=== PATIENT | female | born 1985 | race Caucasian/White ===

== ENCOUNTER 2016-12-01 17:04 | Emergency (ER) | payer SELFPAY ==
[~2016-12-01] VITALS: Ht 165.1 cm; Wt 85.9 kg
[~2016-12-01 17:04] MED LIST: BENZ1CAP90 PO; PXL/40 PO
[2016-12-01 17:09] VITALS: TEMP 36.3; Ht 165.1 cm; Wt 85.9 kg
[2016-12-01] MEDS ORDERED: KETOROLAC TROMETHAMINE 60 MG/2 ML VIAL IM STA (17:25)
[2016-12-01] MEDS ORDERED: CYCLOBENZAPRINE HCL 10 MG TAB PO STA (17:25)
[2016-12-01] MEDS ORDERED: HYDROCODONE/ACETAMOPHEN 5/325MG TAB PO STA (17:25)
--- NOTE | 2016-12-01 18:27 | DIAGNOSTIC IMAGING REPORT ---
THORACIC SPINE 3 VIEWS ROUTINE HISTORY: Pain mid back pain COMPARISON: None. FINDINGS: There is no fracture. No subluxation. Disc spaces are preserved. IMPRESSION: No fracture or subluxation within the thoracic spine. The above report was generated using voice recognition software. It may contain grammatical, syntax or spelling errors. Electronically signed by: Marshal Jolly M.D. 12/01/2016 6:26 PM Dictated Date/Time: 12/01/2016 6:25 PM
[2016-12-01] MEDS ORDERED: CYCL10TA6 PO (18:47)
[2016-12-01] MEDS ORDERED: HYDR-5688 PO (18:47)
--- NOTE | 2016-12-01 18:48 | EMERGENCY ROOM VISIT NOTE ---
History First contact with patient: 17:20 Chief Complaint: BACK PAIN Stated Complaint: SEVERE BACK PAIN History of Present Illness The patient is a 31 year old female who presents to the Emergency Room with complaints of mid back pain which started yesterday and got worse today. She states it is on both sides of her back and hurts worse with movement. The patient denies any chest pain or shortness of breath. The patient denies any pain with inspiration. The patient denies any known injury to her mid back. She does admit she's had problems with her lower back in the past. The patient denies any neck pain or low back pain. The patient denies any numbness and tingling in her extremities. Review of Systems 6 system review was performed and was negative unless stated otherwise in history of present illness. Past Medical/Surgical History Medical Problems: (1) History of - tubal ligation (2) Idiopathic thrombocytopenic purpura Social History Smoking Status: Current Every Day Smoker Alcohol Use: none Marital Status: Housing Status: lives with family Current/Historical Medications Scheduled Paroxetine (Paxil), 40 MG PO DAILY Physical Exam Vital Signs Date Time Temp Pulse Resp B/P (MAP) Pulse Ox O2 Delivery O2 Flow Rate FiO2 12/01/16 17:09 36.3 75 18 109/71 94 Room Air Physical Exam GENERAL: 31-year-old white female appears uncomfortable secondary to pain. MENTAL Status: Alert and oriented 3. LUNGS: Clear auscultation without wheezes rales or rhonchi. CARDIAC: Regular rate and rhythm without murmur. Pulses is full and equal throughout. THORACIC SPINE: No gross bony deformity noted. The patient is nontender to palpation over the spinous processes. She is tender to palpation over the paravertebral regions bilaterally in the lower thoracic region. Medical Decision & Procedures ER Provider Diagnostic Interpretation: THORACIC SPINE 3 VIEWS ROUTINE HISTORY: Pain mid back pain COMPARISON: None. FINDINGS: There is no fracture. No subluxation. Disc spaces are preserved. IMPRESSION: No fracture or subluxation within the thoracic spine. The above report was generated using voice recognition software. It may contain grammatical, syntax or spelling errors. Electronically signed by: Marshal Jolly M.D. 12/01/2016 6:26 PM Dictated Date/Time: 12/01/2016 6:25 PM Medications Administered Medications (Trade) Dose Ordered Sig/Elijah Route Start Time Stop Time Status Last Admin Dose Admin Cyclobenzaprine HCl (Flexeril Tab) 10 mg NOW STAT PO 12/01/16 17:25 12/01/16 17:29 DC 12/01/16 18:00 10 MG Ketorolac Tromethamine (Toradol Inj) 60 mg NOW STAT IM 12/01/16 17:25 12/01/16 17:29 DC 12/01/16 18:01 60 MG Acetaminophen/ Hydrocodone Bitart ([place] 5/325 Tab) 2 tab NOW STAT PO 12/01/16 17:25 12/01/16 17:29 DC 12/01/16 18:00 2 TAB ED Course The patient was evaluated. The patient's EMR medication list were reviewed. The patient was given Toradol 60 mg IM, Flexeril 10 mg by mouth and [place] 5/325 mg 2 tablets by mouth for pain. X-ray of thoracic spine was ordered and interpreted by the radiologist and myself as above without any acute findings. The patient was reevaluated was feeling better. Her now did state that they have recently been moving in 2 other nephews into their home and it has been very hectic. She may have easily pulled a muscle. The patient was discharged home in stable condition.. Medical Decision Differential diagnosis include compression fracture, muscle strain, costochondritis [place] Drug Monitoring Program Search Results: patient reviewed within database Medication Reconcilliation Current Medication List: was personally reviewed by co Blood Pressure Screening Patient's blood pressure: Normal blood pressure Impression Primary Impression: Muscle strain Departure Information Dispostion Home / Self-Care Condition GOOD Prescriptions Hydrocodone/Acetaminophen 5MG/325MG ([place] 5MG/325MG) Tab 1-2 TABLET PO Q6 Y for Pain, #20 TAB For Initial Treatment Prov: Fany Jolly PA-C 12/01/16 Cyclobenzaprine Hcl (FLEXERIL) 10 Mg Tab 1 TAB PO TID for 7 Days, #21 TAB Prov: Fany Jolly PA-C 12/01/16 Referrals Travis Wynne M.D. (PCP) Forms HOME CARE DOCUMENTATION FORM, IMPORTANT VISIT INFORMATION Patient Instructions My [facility] Additional Instructions Try moist heat to the affected area intermittently over the next 24 hours. Ibuprofen 600 mg every 6 hours with food for pain. Take [place] as needed for more severe pain. Do not drive or taken the [place]. Take Flexeril as directed. Do not drive while taking the Flexeril. Avoid any strenuous exercise or lifting with her upper body. If symptoms are not improving in 3-4 days, follow- up with your family doctor.
[2016-12-01 18:53] VITALS: BP 117/75; PULSE 63; O2SAT 95
== END 2016-12-01 18:53 | disposition home or self-care (01) ==
LOC: C.EDB 17:07 → C.EDD 18:53
DX: S29.012A Strain of muscle and tendon of back wall of thorax, initial encounter (principal); Z79.899 Other long term (current) drug therapy; F17.200 Nicotine dependence, unspecified, uncomplicated; X58.XXXA Exposure to other specified factors, initial encounter

== ENCOUNTER 2017-04-19 10:17 | Emergency (ER) | payer SELFPAY ==
[~2017-04-19] VITALS: Ht 162.6 cm; Wt 88.0 kg
[~2017-04-19 10:17] MED LIST changes: -BENZ1CAP90 PO; +HYDR-5688 PO
[2017-04-19 10:26] VITALS: TEMP 36.9; Ht 162.6 cm; Wt 88.0 kg
[2017-04-19] MEDS ORDERED: KETOROLAC TROMETHAMINE 30 MG/ML VIAL IV STA (10:40)
--- NOTE | 2017-04-19 10:57 | EMERGENCY ROOM VISIT NOTE ---
History First contact with patient: 10:33 Chief Complaint: SORETHROAT Stated Complaint: SEVERE SORE THROAT,EARACHE,LEGS AND NECK SORE History of Present Illness The patient is a 31 year old female who presents to the Emergency Room with complaints of flulike symptoms for the past 2 days. The patient reports that she has had severe sore throat, bilateral earaches, head pain, bodyaches and pain in the front of her neck for the past 2 days. She reports that she has not slept due to her symptoms. She has tried multiple uosy-xlo-otdxarh medications without relief. She states that she has felt fatigued and becomes short of breath walking short distances. She has had a cough, mostly at night. She denies any recent sick contacts. She did not receive a flu vaccine this year. She does report she had one episode of vomiting last night but feels this was due to postnasal drainage. She denies abdominal pain or diarrhea. She denies neck stiffness, fevers or difficulty breathing. Review of Systems A complete 10 point review of systems was reviewed with the patient with pertinent positives and negatives as per history of present illness. All else were negative. Past Medical/Surgical History Medical Problems: (1) History of - tubal ligation (2) Idiopathic thrombocytopenic purpura Social History Smoking Status: Never Smoker Alcohol Use: none Marital Status: Housing Status: lives with family Current/Historical Medications Scheduled Paroxetine (Paxil), 40 MG PO DAILY Scheduled PRN [id number]-Qtzg (Theraflu Flu & Sore Throa), 1 PKT PO UD PRN for ILLNESS Physical Exam Vital Signs Date Time Temp Pulse Resp B/P (MAP) Pulse Ox O2 Delivery O2 Flow Rate FiO2 04/19/17 13:09 82 18 116/96 97 Room Air 04/19/17 12:20 67 18 104/64 98 Room Air 04/19/17 10:26 36.9 91 18 114/82 97 Room Air Physical Exam VITALS: Vitals are noted on the nurse's note and reviewed by myself. Vital signs stable. GENERAL: This is a 31-year-old female, in no acute distress, nondiaphoretic, well-developed well-nourished. SKIN: The skin was without rashes. EARS: External auditory canals clear, tympanic membranes pearly hutchison without erythema or effusion bilaterally. EYES: Pupils equal round and reactive to light and accommodation. MOUTH: Mucous membranes moist. Tonsils are not enlarged. Pharynx without erythema or exudate. NECK: Supple without nuchal rigidity. No lymphadenopathy. HEART: Regular rate and rhythm without murmurs gallops or rubs. LUNGS: Clear to auscultation bilaterally without wheezes, rales or rhonchi. No retractions or accessory muscle use. ABDOMEN: Soft, nontender to palpation. NEURO: Patient was alert and oriented to person place and time. Medical Decision & Procedures ER Provider Diagnostic Interpretation: SINGLE VIEW CHEST CLINICAL HISTORY: Cough. FINDINGS: An AP, portable, upright chest radiograph is compared to study dated 09/20/2016. The cardiomediastinal silhouette is unremarkable. There is mild bibasilar atelectasis. The lungs and pleural spaces are otherwise clear. No pneumothorax is seen. The bony thorax is grossly intact. IMPRESSION: No active disease in the chest. Laboratory Results 04/19/17 10:55 Red Blood Count 4.73, Mean Corpuscular Volume 92.2, Mean Corpuscular Hemoglobin 32.6, Mean Corpuscular Hemoglobin Concent 35.3, Mean Platelet Volume 10.7, Neutrophils (%) (Auto) 70.6, Lymphocytes (%) (Auto) 18.5, Monocytes (%) (Auto) 9.2, Eosinophils (%) (Auto) 1.3, Basophils (%) (Auto) 0.2, Neutrophils # (Auto) 8.67, Lymphocytes # (Auto) 2.27, Monocytes # (Auto) 1.13, Eosinophils # (Auto) 0.16, Basophils # (Auto) 0.03 04/19/17 10:55 Test 04/19/17 10:55 04/19/17 11:03 White Blood Count 12.28 K/uL (4.8-10.8) Red Blood Count 4.73 M/uL (4.2-5.4) Hemoglobin 15.4 g/dL (12.0-16.0) Hematocrit 43.6 % (37-47) Mean Corpuscular Volume 92.2 fL (80-100) Mean Corpuscular Hemoglobin 32.6 pg (25-34) Mean Corpuscular Hemoglobin Concent 35.3 g/dl (32-36) Platelet Count 141 K/uL (130-400) Mean Platelet Volume 10.7 fL (7.4-10.4) Neutrophils (%) (Auto) 70.6 % Lymphocytes (%) (Auto) 18.5 % Monocytes (%) (Auto) 9.2 % Eosinophils (%) (Auto) 1.3 % Basophils (%) (Auto) 0.2 % Neutrophils # (Auto) 8.67 K/uL (1.4-6.5) Lymphocytes # (Auto) 2.27 K/uL (1.2-3.4) Monocytes # (Auto) 1.13 K/uL (0.11-0.59) Eosinophils # (Auto) 0.16 K/uL (0-0.5) Basophils # (Auto) 0.03 K/uL (0-0.2) RDW Standard Deviation 46.0 fL (36.4-46.3) RDW Coefficient of Variation 13.6 % (11.5-14.5) Immature Granulocyte % (Auto) 0.2 % Immature Granulocyte # (Auto) 0.02 K/uL (0.00-0.02) Anion Gap 6.0 mmol/L (3-11) Est Creatinine Clear Calc Drug Dose 124.6 ml/min Estimated GFR () 132.6 Estimated GFR (Non- 114.4 BUN/Creatinine Ratio 12.2 (10-20) Calcium Level 8.8 mg/dl (8.5-10.1) Influenza Type A Antigen Neg for Influ A (NEG) Influenza Type B Antigen Neg for Influ B (NEG) Medications Administered Medications (Trade) Dose Ordered Sig/Elijah Route Start Time Stop Time Status Last Admin Dose Admin Ketorolac Tromethamine (Toradol Inj) 30 mg NOW STAT IV 04/19/17 10:40 04/19/17 10:43 DC 04/19/17 10:52 30 MG Medical Decision Differential diagnosis includes influenza, strep pharyngitis, viral illness, pneumonia, among others. The patient is a 31-year-old female who presents today complaining of flulike symptoms. Labs revealed and mild leukocytosis. Rapid influenza and strep testing were negative. Strep culture is pending. Patient was treated with IV Toradol with some relief. Her symptoms are likely due to a viral illness. She was instructed to follow-up with her primary care provider. Conservative measures were discussed. Based on the patient's presentation and work up, I feel the patient is stable for outpatient treatment. The patient was educated to return to the emergency department for any worsening of their current condition or new/concerning symptoms. She will follow up with her PCP. Medication Reconcilliation Current Medication List: was personally reviewed by me Blood Pressure Screening Patient's blood pressure: Normal blood pressure Impression Primary Impression: Flu-like symptoms Departure Information Dispostion Home / Self-Care Condition GOOD Referrals Travis Wynne M.D. (PCP) Patient Instructions My [facility] Additional Instructions For pain control, you can use the following kuje-jfd-jboxpej medicines (if >12 yo): - Regular strength (325mg/tab) Tylenol (acetaminophen) 2 tabs every 4-6 hours as needed. Do not exceed 12 tablets in a 24 hour period. Avoid taking more than 4 grams (4000 mg) of Tylenol per day. This includes any other sources of acetaminophen you may take on a regular basis. - Regular strength (200 mg/tab) Advil (ibuprofen) 1-2 tabs every 4-6 hours as needed. Do not exceed a dose of 3200 mg per day. Sudafed [id number]-khk-htizlwa as needed for congestion and other symptoms. Flonase nasal spray as directed over the counter. This will help with your nasal congestion. Rest and drink plenty of fluids. Follow-up with your primary care provider for a recheck. Return to the emergency department for any worsening or new/concerning symptoms.
--- NOTE | 2017-04-19 10:58 | DIAGNOSTIC IMAGING REPORT ---
SINGLE VIEW CHEST CLINICAL HISTORY: Cough. FINDINGS: An AP, portable, upright chest radiograph is compared to study dated 09/20/2016. The cardiomediastinal silhouette is unremarkable. There is mild bibasilar atelectasis. The lungs and pleural spaces are otherwise clear. No pneumothorax is seen. The bony thorax is grossly intact. IMPRESSION: No active disease in the chest. Electronically signed by: Scott Jacob M.D. 04/19/2017 10:57 AM Dictated Date/Time: 04/19/2017 10:56 AM
[2017-04-19] MEDS ORDERED: THERA FLU PO (11:01)
[2017-04-19] MEDS ORDERED: [UNRECOGNIZED DRUG - CODE] PO (11:02)
[2017-04-19 11:04] LABS: BASO % 0.2 %; BASO ABS # 0.03 K/uL (0-0.2); EOS % 1.3 %; EOS ABS # 0.16 K/uL (0-0.5); HEMATOCRIT 43.6 % (37-47); HEMOGLOBIN 15.4 g/dL (12.0-16.0); IG# 0.02 K/uL (0.00-0.02); LYMPH % 18.5 %; LYMPH ABS # 2.27 K/uL (1.2-3.4); MEAN CELL VOLUME 92.2 fL (80-100); MEAN CORPUSCULAR HEMOGLOBIN 32.6 pg (25-34); MEAN CORPUSCULAR HGB CONC 35.3 g/dl (32-36); MEAN PLATELET VOLUME 10.7 fL (7.4-10.4); MONO % 9.2 %; MONO ABS # 1.13 K/uL (0.11-0.59); NEUT % 70.6 %; NEUT ABS # 8.67 K/uL (1.4-6.5); PLATELET COUNT 141 K/uL (130-400); RED CELL DISTRIBUTION WIDTH CV 13.6 % (11.5-14.5); WHITE BLOOD COUNT 12.28 K/uL (4.8-10.8)
[2017-04-19 11:21] LABS: CALCIUM 8.8 mg/dl (8.5-10.1); CREATININE 0.69 mg/dl (0.60-1.20); POTASSIUM 3.9 mmol/L (3.5-5.1)
[2017-04-19 11:40] LABS: INFLUENZA B ANTIGEN Neg for Influ B (NEG)
[2017-04-19 13:09] VITALS: BP 116/96; PULSE 82; O2SAT 97
== END 2017-04-19 13:32 | disposition home or self-care (01) ==
LOC: C.EDB 10:18 → C.EDC 13:32
DX: J02.9 Acute pharyngitis, unspecified (principal); R05 Cough; R11.10 Vomiting, unspecified; D69.3 Immune thrombocytopenic purpura; Z98.51 Tubal ligation status

== ENCOUNTER 2017-12-01 13:25 | Emergency (ER) | payer SELFPAY ==
[~2017-12-01] VITALS: Ht 162.6 cm; Wt 87.4 kg
[~2017-12-01 13:25] MED LIST changes: -HYDR-5688 PO; +[UNRECOGNIZED DRUG - CODE] PO
[2017-12-01 13:29] VITALS: TEMP 36.5; Ht 162.6 cm; Wt 87.4 kg
[2017-12-01] MEDS ORDERED: MECLIZINE HCL 25 MG TAB PO STA (13:41)
[2017-12-01] MEDS ORDERED: SODIUM CHLORIDE 0.9% 1000ML 1,000 ML IV STA (13:41)
[2017-12-01] MEDS ORDERED: ONDANSETRON 4MG OD TAB PO ONE (13:45)
[2017-12-01 13:57] VITALS: O2SAT 100
[2017-12-01 14:17] LABS: BASO % 0.2 %; BASO ABS # 0.02 K/uL (0-0.2); EOS % 1.9 %; EOS ABS # 0.17 K/uL (0-0.5); HEMATOCRIT 45.2 % (37-47); HEMOGLOBIN 15.8 g/dL (12.0-16.0); IG# 0.01 K/uL (0.00-0.02); LYMPH % 30.2 %; LYMPH ABS # 2.66 K/uL (1.2-3.4); MEAN CELL VOLUME 91.9 fL (80-100); MEAN CORPUSCULAR HEMOGLOBIN 32.1 pg (25-34); MEAN PLATELET VOLUME 10.6 fL (7.4-10.4); MONO % 4.7 %; MONO ABS # 0.41 K/uL (0.11-0.59); NEUT % 62.9 %; NEUT ABS # 5.53 K/uL (1.4-6.5); PLATELET COUNT 178 K/uL (130-400); RED CELL DISTRIBUTION WIDTH CV 13.7 % (11.5-14.5); RED CELL DISTRIBUTION WIDTH SD 46.1 fL (36.4-46.3)
--- NOTE | 2017-12-01 14:24 | DIAGNOSTIC IMAGING REPORT ---
CHEST ONE VIEW PORTABLE CLINICAL HISTORY: EVALUATE WEAKNESS mental status change COMPARISON STUDY: 04/19/2017 FINDINGS: The bones soft tissues and hemidiaphragms are normal. The cardiomediastinal silhouette is normal. The lungs are clear. The pulmonary vasculature is normal. IMPRESSION: Negative chest. The above report was generated using voice recognition software. It may contain grammatical, syntax or spelling errors. Electronically signed by: Marshal Jolly M.D. 12/01/2017 2:22 PM Dictated Date/Time: 12/01/2017 2:22 PM
[2017-12-01 14:40] LABS: ALKALINE PHOSPHATASE 73 U/L (45-117); ALT/SGPT 23 U/L (12-78); AST/SGOT 16 U/L (15-37); BLOOD UREA NITROGEN 9 mg/dl (7-18); CALCIUM 8.9 mg/dl (8.5-10.1); CARBON DIOXIDE 24 mmol/L (21-32); CREATININE 0.78 mg/dl (0.60-1.20); GLUCOSE 82 mg/dl (70-99); POTASSIUM 3.9 mmol/L (3.5-5.1); SODIUM 134 mmol/L (136-145)
--- NOTE | 2017-12-01 14:48 | DIAGNOSTIC IMAGING REPORT ---
CT SCAN OF THE BRAIN WITHOUT IV CONTRAST CLINICAL HISTORY: Generalized weakness. Dizziness. Blurred vision. COMPARISON STUDY: No priors. TECHNIQUE: Unenhanced axial CT scan of the brain is performed from the vertex to the skull base. A dose lowering technique was utilized adhering to the principles of ALARA. CT DOSE: 537.48 mGy.cm FINDINGS: Brain parenchyma: The brain parenchyma is normal in appearance. There is no hemorrhage, mass effect, or evidence of acute territorial ischemia by CT criteria. Ruby-white matter is preserved. No extra-axial fluid collection is seen. Ventricles, sulci, cisterns: Normal in configuration. Intracranial vasculature: The visualized intracranial vasculature at the skull base is normal in appearance. Calvarium: Unremarkable. Sinuses and mastoids: Trace mucosal thickening is seen within the left frontal sinus and the anterior ethmoid sinuses. The remaining visualized paranasal sinuses are clear. The mastoid air cells are well pneumatized. Orbits: The bony orbits are grossly intact. IMPRESSION: No acute intracranial abnormality. Electronically signed by: Scott Jacob M.D. 12/01/2017 2:46 PM Dictated Date/Time: 12/01/2017 2:45 PM
[2017-12-01 15:22] VITALS: BP 129/72; PULSE 51; O2SAT 98
--- NOTE | 2017-12-01 17:23 | EMERGENCY ROOM VISIT NOTE ---
History Report prepared by Aaron: Gay Contreras Under the Supervision of: Dr. Nicolás Morrison D.O. 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 She states she was driving when she developed some horizontal double vision and dizziness. When she closed one eye, she still saw 2 objects in both eyes [id number]. Currently, she has blurry vision but her double vision is resolved. Pt has some associated mild right sided head pressure but denies any weakness, abdominal pain, cough, SOB. She states her mouth and bilateral hands were numb and tingling. 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 Patient has no other clotting disorders. 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 A total of 10 systems reviewed and were otherwise negative. Past Medical & Surgical Medical Problems: (1) History of - tubal ligation (2) Idiopathic thrombocytopenic purpura Family History Cancer FH: diabetes mellitus FH: lung disease FH: seizures Heart disease Social History Smoking Status: Current Every Day Smoker Alcohol Use: none Marital Status: Housing Status: lives with family Current/Historical Medications Scheduled Paroxetine (Paxil), 40 MG PO DAILY Scheduled PRN Csucxfzjgyp-Caaimqwusnsim-Nqqw (Theraflu Flu & Sore Throa), 1 PKT PO UD PRN for ILLNESS Allergies Coded Allergies: No Known Allergies (Verified , 04/19/17) Physical Exam Vital Signs Date Time Temp Pulse Resp B/P (MAP) Pulse Ox O2 Delivery O2 Flow Rate FiO2 12/01/17 15:22 51 16 129/72 98 12/01/17 13:58 57 12/01/17 13:57 100 Room Air 12/01/17 13:57 100 12/01/17 13:55 58 137/86 72 127/93 73 123/83 8/15/18 13:29 36.5 71 18 132/92 98 Room Air Physical Exam GENERAL: Sitting up in bed, alert, anxious appearing, well nourished, no distress, non-toxic EYE EXAM: normal conjunctiva. PERRLA, extraocular muscles intact OROPHARYNX: no exudate, no erythema, lips, buccal mucosa, and tongue normal and mucous membranes are moist NECK: supple, no nuchal rigidity, no adenopathy, non-tender LUNGS: Clear to auscultation. Normal chest wall mechanics HEART: no murmurs, S1 normal and S2 normal ABDOMEN: abdomen soft, non-tender, normo-active bowel sounds, no masses, no rebound or guarding. BACK: Back is symmetrical on inspection and there is no deformity, no midline tenderness, no CVA tenderness. SKIN: no rashes and no bruising UPPER EXTREMITIES: upper extremities are grossly normal. LOWER EXTREMITIES: No pitting edema. NEURO EXAM: Normal sensorium, cranial nerves II-XII intact, normal speech, no weakness of arms, no weakness of legs. No drift. Finger to nose intact. Gross sensation intact. Rapid alternating movement of upper extremities intact. Medical Decision & Procedures ER Provider Diagnostic Interpretation: Radiology results as stated below per my review and the radiologist's interpretation: CT SCAN OF THE BRAIN WITHOUT IV CONTRAST CLINICAL HISTORY: Generalized weakness. Dizziness. Blurred vision. COMPARISON STUDY: No priors. TECHNIQUE: Unenhanced axial CT scan of the brain is performed from the vertex to the skull base. A dose lowering technique was utilized adhering to the principles of ALARA. CT DOSE: 537.48 mGy.cm FINDINGS: Brain parenchyma: The brain parenchyma is normal in appearance. There is no hemorrhage, mass effect, or evidence of acute territorial ischemia by CT criteria. Ruby-white matter is preserved. No extra-axial fluid collection is seen. Ventricles, sulci, cisterns: Normal in configuration. Intracranial vasculature: The visualized intracranial vasculature at the skull base is normal in appearance. Calvarium: Unremarkable. Sinuses and mastoids: Trace mucosal thickening is seen within the left frontal sinus and the anterior ethmoid sinuses. The remaining visualized paranasal sinuses are clear. The mastoid air cells are well pneumatized. Orbits: The bony orbits are grossly intact. IMPRESSION: No acute intracranial abnormality. Electronically signed by: Scott Jacob M.D. 12/01/2017 2:46 PM CHEST ONE VIEW PORTABLE CLINICAL HISTORY: EVALUATE WEAKNESS mental status change COMPARISON STUDY: 04/19/2017 FINDINGS: The bones soft tissues and hemidiaphragms are normal. The cardiomediastinal silhouette is normal. The lungs are clear. The pulmonary vasculature is normal. IMPRESSION: Negative chest. The above report was generated using voice recognition software. It may contain grammatical, syntax or spelling errors. Electronically signed by: Marshal Jolly M.D. 12/01/2017 2:22 PM Laboratory Results 12/01/17 14:06 Red Blood Count 4.92, Mean Corpuscular Volume 91.9, Mean Corpuscular Hemoglobin 32.1, Mean Corpuscular Hemoglobin Concent 35.0, Mean Platelet Volume 10.6, Neutrophils (%) (Auto) 62.9, Lymphocytes (%) (Auto) 30.2, Monocytes (%) (Auto) 4.7, Eosinophils (%) (Auto) 1.9, Basophils (%) (Auto) 0.2, Neutrophils # (Auto) 5.53, Lymphocytes # (Auto) 2.66, Monocytes # (Auto) 0.41, Eosinophils # (Auto) 0.17, Basophils # (Auto) 0.02 12/01/17 14:06 Test 12/01/17 14:06 12/01/17 14:14 White Blood Count 8.80 K/uL (4.8-10.8) Red Blood Count 4.92 M/uL (4.2-5.4) Hemoglobin 15.8 g/dL (12.0-16.0) Hematocrit 45.2 % (37-47) Mean Corpuscular Volume 91.9 fL (80-100) Mean Corpuscular Hemoglobin 32.1 pg (25-34) Mean Corpuscular Hemoglobin Concent 35.0 g/dl (32-36) Platelet Count 178 K/uL (130-400) Mean Platelet Volume 10.6 fL (7.4-10.4) Neutrophils (%) (Auto) 62.9 % Lymphocytes (%) (Auto) 30.2 % Monocytes (%) (Auto) 4.7 % Eosinophils (%) (Auto) 1.9 % Basophils (%) (Auto) 0.2 % Neutrophils # (Auto) 5.53 K/uL (1.4-6.5) Lymphocytes # (Auto) 2.66 K/uL (1.2-3.4) Monocytes # (Auto) 0.41 K/uL (0.11-0.59) Eosinophils # (Auto) 0.17 K/uL (0-0.5) Basophils # (Auto) 0.02 K/uL (0-0.2) RDW Standard Deviation 46.1 fL (36.4-46.3) RDW Coefficient of Variation 13.7 % (11.5-14.5) Immature Granulocyte % (Auto) 0.1 % Immature Granulocyte # (Auto) 0.01 K/uL (0.00-0.02) Anion Gap 8.0 mmol/L (3-11) Est Creatinine Clear Calc Drug Dose 108.8 ml/min Estimated GFR () 115.0 Estimated GFR (Non- 99.2 BUN/Creatinine Ratio 11.2 (10-20) Calcium Level 8.9 mg/dl (8.5-10.1) Total Bilirubin 0.4 mg/dl (0.2-1) Direct Bilirubin < 0.1 mg/dl (0-0.2) Aspartate Amino Transf (AST/SGOT) 16 U/L (15-37) Alanine Aminotransferase (ALT/SGPT) 23 U/L (12-78) Alkaline Phosphatase 73 U/L (45-117) Troponin I < 0.015 ng/ml (0-0.045) Total Protein 8.0 gm/dl (6.4-8.2) Albumin 4.0 gm/dl (3.4-5.0) Urine Color YELLOW Urine Appearance CLOUDY (CLEAR) Urine pH 6.5 (4.5-7.5) Urine Specific [place] 1.005 (1.000-1.030) Urine Protein NEG (NEG) Urine Glucose (UA) NEG (NEG) Urine Ketones NEG (NEG) Urine Occult Blood NEG (NEG) Urine Nitrite NEG (NEG) Urine Bilirubin NEG (NEG) Urine Urobilinogen NEG (NEG) Urine Leukocyte Esterase NEG (NEG) Urine WBC (Auto) 1-5 /hpf (0-5) Urine RBC (Auto) 0-4 /hpf (0-4) Urine Hyaline Casts (Auto) 5-10 /lpf (0-5) Urine Epithelial Cells (Auto) >30 /lpf (0-5) Urine Bacteria (Auto) 1+ (NEG) Laboratory results per my review. Medications Administered Medications (Trade) Dose Ordered Sig/Elijah Route Start Time Stop Time Status Last Admin Dose Admin Ondansetron HCl (Zofran Odt) 4 mg ONE ONCE PO 12/01/17 13:45 12/01/17 13:46 DC 12/01/17 14:14 4 MG Sodium Chloride 1,000 ml @ 999 mls/hr Q1H1M STAT IV 12/01/17 13:41 12/01/17 14:41 DC 12/01/17 13:41 999 MLS/HR Meclizine HCl (Antivert Tab) 25 mg NOW STAT PO 12/01/17 13:41 12/01/17 13:42 DC 12/01/17 14:14 25 MG ECG Per My Interpretation Indication: other (dizziness) Rate (beats per minute): 60 Rhythm: sinus rhythm Findings: other (normal axis, no PVCs) ED Course ED COURSE: Vital signs were reviewed and showed normal The patients medical record was reviewed The above diagnostic studies were performed and reviewed. ED treatments and interventions as stated above. 1334: The patient was evaluated in room C1. A complete history and physical examination was performed. 1341: Ordered Antivert Tab 25 mg PO, Sodium Chloride 1000 ml @ 999 mls/hr IV 1345: Ordered Zofran Odt 4 mg PO 1414: I checked on the patient at this time. She is resting comfortably. 1500: I reviewed the patient's case with Dr. Jesus Orantes, Neurology [facility]. He agree she can be seen as an outpatient and have her follow up 1505: Upon reevaluation, the patient is feeling better. I discussed my findings with the patient and she understands and agrees with the treatment plan. Based on the patients age, coexisting illnesses, exam and lab findings the decision to treat as an outpatient was made. The patient remained stable while under my care. The patient appeared well at the time of discharge. Medical Decision Differential diagnosis includes etiologies such as benign positional vertigo, dehydration, hypovolemia, anemia, tumor, infection, hypoglycemia, electrolyte abnormalities, cardiac sources, intracerebral event, toxicologic, neurologic, as well as others were entertained. Patient is a 32-year-old female presents to ER for double vision. This started 45 minutes prior to arrival and was in both eyes. Patient was seen 2 images in each eye [id number]. She notes that she had double vision in each eye when she closed the opposite eye. Patient pulled over the side of road. Prior to presentation this resolved. She notes that she started to get blurry vision prior to arrival to the ER. She is neurologically intact here. CT head was negative. Symptoms completely resolved. Labs are fairly unremarkable. Discussed with neurology both agree this is likely not central or peripheral in nature. I favor that she was likely describing blurry vision in both eyes. Nothing to suggest a CVA. Patient was discharged follow-up with PCP as an outpatient. Discussed with Pt concerning signs and symptoms to watch out for. Pt was instructed to follow up with their PCP and discussed with the patient their option to return to the ED at anytime for persistent or worsening symptoms. The appropriate anticipatory guidance and out-patient management, including indications for return to the emergency department, were explained at length to the patient and understood. Medication Reconcilliation Current Medication List: was personally reviewed by me Blood Pressure Screening Patient's blood pressure: Normal blood pressure Consults Time Called: 1450 Consulting Physician: Dr. Jesus Orantes, Neurology [facility] Returned Call: 1500 I reviewed the patient's case with Dr. Jesus Orantes, Neurology [facility]. He agree she can be seen as an outpatient and have her follow up Impression Primary Impression: Blurry vision Additional Impression: Dizziness Scribe Attestation The scribe's documentation has been prepared under my direction and personally reviewed by me in its entirety. I confirm that the note above accurately reflects all work, treatment, procedures, and medical decision making performed by me. Departure Information Dispostion Home / Self-Care Referrals Travis Wynne M.D. (PCP) Forms HOME CARE DOCUMENTATION FORM, IMPORTANT VISIT INFORMATION, WORK / SCHOOL INSTRUCTIONS Patient Instructions My [facility] [place] [employer] Additional Instructions Please follow up with your primary care doctor with in the next 24 hours. Any worsening of your symptoms, please return to the ED immediately. This includes any fevers greater than 100.4, worsening pain, chest pain, shortness breath, persistent nausea, vomiting, unable to eat or drink, or any other concerning signs or symptoms from your standpoint. Please take Tylenol or Motrin as needed for the headache. Please refrain from driving for the next 24 hours and at least until her symptoms completely resolved. Any recurrence of weakness or numbness in her arms legs, change in vision or confusion please return immediately to the ER. Problem Qualifiers
== END 2017-12-01 15:23 | disposition home or self-care (01) ==
LOC: C.EDB 13:29 → C.EDC 15:23
DX: H53.8 Other visual disturbances (principal); R42 Dizziness and giddiness; F17.200 Nicotine dependence, unspecified, uncomplicated; Z86.2 Personal history of diseases of the blood and blood-forming organs and certain disorders involving the immune mechanism

== ENCOUNTER 2017-12-08 20:48 | Emergency (ER) | payer SELFPAY ==
[~2017-12-08] VITALS: Ht 162.6 cm; Wt 87.8 kg
[2017-12-08 20:50] VITALS: TEMP 36.9; Ht 162.6 cm; Wt 87.8 kg
[2017-12-08] MEDS ORDERED: KETOROLAC TROMETHAMINE 30 MG/ML VIAL IV STA (22:06)
[2017-12-08] MEDS ORDERED: DiphenhydrAMINE HCL 50 MG/ML VIAL IV STA (22:06)
[2017-12-08] MEDS ORDERED: PROCHLORPERAZINE 5 MG/ML 2 ML VIAL IV STA (22:06)
[2017-12-08] MEDS ORDERED: RIZATRIPTAN BENZOATE 10 MG TAB PO ONE (22:15)
[2017-12-08] MEDS ORDERED: SODIUM CHLORIDE 0.9% 1000ML 1,000 ML IV ONE ×2 (22:15)
[2017-12-08 22:39] LABS: BASO % 0.2 %; BASO ABS # 0.02 K/uL (0-0.2); EOS % 3.1 %; EOS ABS # 0.25 K/uL (0-0.5); HEMATOCRIT 42.4 % (37-47); HEMOGLOBIN 14.9 g/dL (12.0-16.0); IG# 0.02 K/uL (0.00-0.02); LYMPH % 43.5 %; LYMPH ABS # 3.53 K/uL (1.2-3.4); MEAN CORPUSCULAR HEMOGLOBIN 32.3 pg (25-34); MEAN CORPUSCULAR HGB CONC 35.1 g/dl (32-36); MEAN PLATELET VOLUME 10.9 fL (7.4-10.4); MONO % 8.4 %; MONO ABS # 0.68 K/uL (0.11-0.59); NEUT % 44.6 %; NEUT ABS # 3.62 K/uL (1.4-6.5); PLATELET COUNT 159 K/uL (130-400); RED CELL DISTRIBUTION WIDTH CV 13.9 % (11.5-14.5); RED CELL DISTRIBUTION WIDTH SD 46.5 fL (36.4-46.3); WHITE BLOOD COUNT 8.12 K/uL (4.8-10.8)
[2017-12-08 23:06] LABS: ALBUMIN 3.4 gm/dl (3.4-5.0); CALCIUM 8.5 mg/dl (8.5-10.1); CREATININE 0.71 mg/dl (0.60-1.20); POTASSIUM 4.1 mmol/L (3.5-5.1); TOTAL PROTEIN 6.8 gm/dl (6.4-8.2)
[2017-12-09] MEDS ORDERED: RIZA10TA18 PO (00:22)
[2017-12-09 00:29] VITALS: BP 127/78; PULSE 88; O2SAT 98
--- NOTE | 2017-12-09 03:56 | EMERGENCY ROOM VISIT NOTE ---
History First contact with patient: 21:47 Chief Complaint: HEADACHE Stated Complaint: INTENSE INSTANT HEADACHE History of Present Illness The patient is a 32 year old female who presents to the Emergency Room with complaints of headache symptoms off and on for the past 1-2 weeks. Patient was seen a week ago at this facility with identical complaints. At that time she had blood work, IV medication, and a CT scan of her head. The patient felt well after that visit, however she had a return of the headache 2 days later, and then again today. The patient states that she saw visual "squiggles" just before the headache began. The patient does not have neck pain, chest pain, chest tightness, shortness of breath, numbness, or paresthesias. No injury or trauma. This headache is similar to her headache last week. Evidently she tried to follow-up with her primary care physician (Dr Wynne), and was informed that he had retired. The patient does not have an appointment to reestablish at this time, but is confident that she will be able to make this occur. The patient is nauseated and denies chance of . No fever. She has been taking ibuprofen today with only minimal improvement of symptoms. The pain is a sharp 10/10. It does not radiate. Review of Systems More than 10 systems were reviewed and otherwise negative with the exception of history of present illness. Past Medical/Surgical History Medical Problems: (1) History of - tubal ligation (2) Idiopathic thrombocytopenic purpura Family History Cancer FH: diabetes mellitus FH: lung disease FH: seizures Heart disease Social History Smoking Status: Current Every Day Smoker Alcohol Use: none Marital Status: Housing Status: lives with family Current/Historical Medications Scheduled Paroxetine (Paxil), 40 MG PO DAILY Rizatriptan Benzoate (Maxalt), 10 MG PO DIRECTED Scheduled PRN Cusruwulylw-Qqkpucmwwhsmh-Fovn (Theraflu Flu & Sore Throa), 1 PKT PO UD PRN for ILLNESS Physical Exam Vital Signs Date Time Temp Pulse Resp B/P (MAP) Pulse Ox O2 Delivery O2 Flow Rate FiO2 12/09/17 00:29 88 20 127/78 98 12/08/17 23:46 82 20 122/72 97 Room Air 12/08/17 21:50 64 18 123/80 94 Room Air 12/08/17 20:50 36.9 66 18 124/88 95 Room Air Physical Exam VITALS: Vitals are noted on the nurse's note and reviewed by myself. Vital signs stable. GENERAL: Well-developed, well-nourished, white female who is resting in a darkened emergency department room. She is answering questions appropriately HEAD: Normocephalic atraumatic. EARS: External ear normal. External auditory canals clear, tympanic membranes pearly [place] without erythema or effusion bilaterally. EYES: Pupils equal round and reactive to light and accommodation. Conjunctivae without injection, sclerae without icterus. Extraocular movements intact. NOSE: Patent, turbinates without inflammation or discharge. MOUTH: Mucous membranes moist. Tonsils are not enlarged. Pharynx without erythema, blood, or exudate. Uvula midline. Airway patent. NECK: Supple without nuchal rigidity. No lymphadenopathy. No thyromegaly. Cervical spine is nontender. No meningismus HEART: Regular rate and rhythm without murmurs gallops or rubs. LUNGS: Clear to auscultation bilaterally without wheezes, rales or rhonchi. No retractions or accessory muscle use. MUSCULOSKELETAL: No muscle atrophy, erythema, or edema noted. Full range of motion in all extremities. No tenderness to palpation. Normal gait. Strength 5/5 throughout. NEURO: Patient was alert and oriented to person place and time. CN II through XII grossly intact. No focal neurological deficits. Medical Decision & Procedures Laboratory Results 12/08/17 22:25 Red Blood Count 4.61, Mean Corpuscular Volume 92.0, Mean Corpuscular Hemoglobin 32.3, Mean Corpuscular Hemoglobin Concent 35.1, Mean Platelet Volume 10.9, Neutrophils (%) (Auto) 44.6, Lymphocytes (%) (Auto) 43.5, Monocytes (%) (Auto) 8.4, Eosinophils (%) (Auto) 3.1, Basophils (%) (Auto) 0.2, Neutrophils # (Auto) 3.62, Lymphocytes # (Auto) 3.53, Monocytes # (Auto) 0.68, Eosinophils # (Auto) 0.25, Basophils # (Auto) 0.02 12/08/17 22:25 Test 12/08/17 22:25 12/08/17 23:46 White Blood Count 8.12 K/uL (4.8-10.8) Red Blood Count 4.61 M/uL (4.2-5.4) Hemoglobin 14.9 g/dL (12.0-16.0) Hematocrit 42.4 % (37-47) Mean Corpuscular Volume 92.0 fL (80-100) Mean Corpuscular Hemoglobin 32.3 pg (25-34) Mean Corpuscular Hemoglobin Concent 35.1 g/dl (32-36) Platelet Count 159 K/uL (130-400) Mean Platelet Volume 10.9 fL (7.4-10.4) Neutrophils (%) (Auto) 44.6 % Lymphocytes (%) (Auto) 43.5 % Monocytes (%) (Auto) 8.4 % Eosinophils (%) (Auto) 3.1 % Basophils (%) (Auto) 0.2 % Neutrophils # (Auto) 3.62 K/uL (1.4-6.5) Lymphocytes # (Auto) 3.53 K/uL (1.2-3.4) Monocytes # (Auto) 0.68 K/uL (0.11-0.59) Eosinophils # (Auto) 0.25 K/uL (0-0.5) Basophils # (Auto) 0.02 K/uL (0-0.2) RDW Standard Deviation 46.5 fL (36.4-46.3) RDW Coefficient of Variation 13.9 % (11.5-14.5) Immature Granulocyte % (Auto) 0.2 % Immature Granulocyte # (Auto) 0.02 K/uL (0.00-0.02) Anion Gap 8.0 mmol/L (3-11) Est Creatinine Clear Calc Drug Dose 119.8 ml/min Estimated GFR () 128.8 Estimated GFR (Non- 111.1 BUN/Creatinine Ratio 16.6 (10-20) Calcium Level 8.5 mg/dl (8.5-10.1) Magnesium Level 1.9 mg/dl (1.8-2.4) Total Bilirubin 0.2 mg/dl (0.2-1) Aspartate Amino Transf (AST/SGOT) 15 U/L (15-37) Alanine Aminotransferase (ALT/SGPT) 22 U/L (12-78) Alkaline Phosphatase 59 U/L (45-117) Total Protein 6.8 gm/dl (6.4-8.2) Albumin 3.4 gm/dl (3.4-5.0) Globulin 3.4 gm/dl (2.5-4.0) Albumin/Globulin Ratio 1.0 (0.9-2) Thyroid Stimulating Hormone (TSH) 2.870 uIu/ml (0.300-4.500) Lyme Disease IgG Antibody NEG (NEG) Lyme Disease IgM Antibody NEG (NEG) Urine Color YELLOW Urine Appearance CLOUDY (CLEAR) Urine pH 6.0 (4.5-7.5) Urine Specific [place] 1.019 (1.000-1.030) Urine Protein NEG (NEG) Urine Glucose (UA) NEG (NEG) Urine Ketones NEG (NEG) Urine Occult Blood NEG (NEG) Urine Nitrite NEG (NEG) Urine Bilirubin NEG (NEG) Urine Urobilinogen NEG (NEG) Urine Leukocyte Esterase NEG (NEG) Urine WBC (Auto) 1-5 /hpf (0-5) Urine RBC (Auto) 0-4 /hpf (0-4) Urine Hyaline Casts (Auto) 1-5 /lpf (0-5) Urine Epithelial Cells (Auto) >30 /lpf (0-5) Urine Bacteria (Auto) 1+ (NEG) Urine Test NEG (NEG) Medications Administered Medications (Trade) Dose Ordered Sig/Elijah Route Start Time Stop Time Status Last Admin Dose Admin Sodium Chloride 1,000 ml @ 999 mls/hr Q1H1M ONCE IV 12/08/17 22:15 12/08/17 23:15 DC 12/08/17 22:34 999 MLS/HR Sodium Chloride 1,000 ml @ 999 mls/hr Q1H1M ONCE IV 12/08/17 22:15 12/08/17 23:15 DC 12/08/17 22:15 999 MLS/HR Diphenhydramine HCl (Benadryl Inj) 25 mg NOW STAT IV 12/08/17 22:06 12/08/17 22:09 DC 12/08/17 22:31 25 MG Prochlorperazine Edisylate (Compazine Inj) 10 mg NOW STAT IV 12/08/17 22:06 12/08/17 22:09 DC 12/08/17 22:31 10 MG Ketorolac Tromethamine (Toradol Inj) 30 mg NOW STAT IV 12/08/17 22:06 12/08/17 22:09 DC 12/08/17 22:32 30 MG Rizatriptan Benzoate (Maxalt Tab) 10 mg NOW ONCE PO 12/08/17 22:15 12/08/17 22:16 DC 12/08/17 22:33 10 MG ED Course Physical exam and history were performed. Nursing notes, EMR, and Medication List were personally reviewed. Patient appears to have headache symptoms off and on for the past several days. She is describing what sounds like a visual aura before her headaches occur, and I strongly suspect migrainous headaches. The patient does have a recent CT scan of the head at this facility that did not show acute findings. Utilizing shared decision making we elected against repeat imaging. IV access was established and labs were obtained. The patient was hydrated with normal saline. She was given IV Benadryl, IV Compazine, IV Toradol, and oral Maxalt. The patient was reevaluated multiple times throughout the course of her stay. Her blood work is as above and was reviewed. She does not have a significantly elevated white blood cell count, gross anemia, bandemia, or significant electrolyte imbalance. Urine is without evidence of infection or . Overall the patient had significant improvement of her symptoms with the above interventions. She was able to rest quite comfortably and reported almost complete resolution of her pain. I discussed options of care with the patient who is comfortable with discharge home. She is having difficulty reestablishing with a PCP and I will give her a prescription of Maxalt. The patient was given instructions as below and otherwise invited back to the ER with any new, worsening, or concerning symptoms. She was discharged home under the care of a female supervisor contact and service clerks who is acting as the public transit bus driver. The chart was completed utilizing [employer] Speech Voice Recognition Software. Grammatical errors, random word insertions, pronoun errors, and incomplete sentences are an occasional consequence of this system due to software limitations, ambient noise, and hardware issues. Any formal questions or concerns about the content, text, or information contained within the body of this dictation should be directly addressed to the provider for clarification. . Medical Decision Differential diagnosis: Etiologies such as migraine headache, meningitis, sinusitis, CO exposure, ICH, SAH, infection, tumor, headache, sinus thrombosis, arterial dissection, as well as others were entertained. Impression Primary Impression: Headache Departure Information Dispostion Home / Self-Care Condition GOOD Prescriptions Rizatriptan Benzoate (MAXALT) 10 Mg Tab 10 MG PO DIRECTED for Migraine, #30 TAB Take 10 mg at Migraine onset. Repeat in 2 hours if no relief. Max of 3 doses in 24 hours. Prov: Vikas Washburn PA-C 12/09/17 Referrals No Doctor, Assigned (PCP) Forms HOME CARE DOCUMENTATION FORM, IMPORTANT VISIT INFORMATION Patient Instructions [facility] Additional Instructions You were seen and evaluated today on an emergency basis only. This is not a substitute for, or an effort to provide, complete comprehensive medical care. It is not possible to recognize and treat all injuries or illnesses in a single emergency department visit. For this reason it is recommended that you followup with your primary care physician as soon as possible for ongoing care and evaluation. Drink plenty to remain well-hydrated. Take Maxalt as prescribed Do not drink or drive as you were given medications that will make you tired today You are welcome to return to the emergency department anytime with new, worsening, or concerning symptoms.
== END 2017-12-09 00:30 | disposition home or self-care (01) ==
LOC: C.EDB 20:49 → C.EDA 12-09 00:30
DX: R51 Headache (principal); F17.210 Nicotine dependence, cigarettes, uncomplicated; Z79.899 Other long term (current) drug therapy